=== PATIENT | female | born 1970 | race Caucasian/White ===

== ENCOUNTER 2016-05-01 08:09 | Emergency (ER) | payer BC, MEDICAID ==
[2016-05-01 08:22] VITALS: BP 122/76
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
== END 2016-05-01 09:41 | disposition home or self-care (01) ==
LOC: UCEAST 08:09
DX: B34.9 Viral infection, unspecified (principal); Z88.8 Allergy status to other drugs, medicaments and biological substances; F17.210 Nicotine dependence, cigarettes, uncomplicated
CPT/HCPCS: 87502; 87651; 99212; G0463

== ENCOUNTER 2016-10-30 16:48 | Emergency (ER) | payer BC, MEDICAID ==
[2016-10-30] MEDS ORDERED: Ketorolac INJ* 60 MG/2 ML VIAL IM ONE (17:49)
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
[2016-10-30 19:08] VITALS: BP 134/80
== END 2016-10-30 19:07 | disposition home or self-care (01) ==
LOC: ED 16:48
DX: M54.2 Cervicalgia (principal); F17.210 Nicotine dependence, cigarettes, uncomplicated; Z04.1 Encounter for examination and observation following transport accident
CPT/HCPCS: 72125; 96372; 99282; J1885

== ENCOUNTER 2016-11-18 10:25 | Emergency (ER) | payer BC, OTHER ==
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
[2016-11-18 13:06] VITALS: BP 128/73
== END 2016-11-18 13:10 | disposition home or self-care (01) ==
LOC: UCEAST 10:25
DX: M62.838 Other muscle spasm (principal); Z88.8 Allergy status to other drugs, medicaments and biological substances; F17.210 Nicotine dependence, cigarettes, uncomplicated
CPT/HCPCS: 99212; G0463

== ENCOUNTER 2016-12-23 16:06 | Emergency (ER) | payer MEDICAID, OTHER ==
[2016-12-23 16:22] VITALS: BP 122/74
--- NOTE | 2016-12-23 16:29 | UC ---
UC Dental HPI - HPI Summary HPI Summary: 46 YEAR OLD FEMALE PRESENTS WITH COMPLAINS OF RIGHT LOWER MOLAR ABSCESS. - History of Current Complaint Chief Complaint: UCDentalProblem Stated Complaint: DENTAL PAIN Time Seen by Provider: 12/23/16 16:26 Hx Obtained From: Patient Hx Last Menstrual Period: 12/18/16 Onset/Duration: Sudden Onset Severity: Moderate Pain Scale Used: 0-10 Numeric - 7 - Allergies/Home Medications Allergies/Adverse Reactions: Allergies Allergy/AdvReac Type Severity Reaction Status Date / Time Venlafaxine [From Effexor] Allergy Severe Difficulty Verified 12/23/16 16:23 Breathing Paroxetine [From Paxil] Allergy Intermediate Numbness Verified 12/23/16 16:23 And Tingling Home Medications: Home Medications Ibuprofen TAB* [Advil TAB*] 800 mg PO Q3HR PRN 12/23/16 [History Confirmed 12/23] PMH/Surg Hx/FS Hx/Imm Hx Previously Healthy: Yes - Surgical History Surgical History: Yes Surgery Procedure, Year, and Place: appy, TUBAL LIGATION, COLON PRE-CANCEROUS POLYP REMOVED - Family History Known Family History: Positive: Unknown, Hypertension - Social History Alcohol Use: None Substance Use Type: None Smoking Status (MU): Heavy Every Day Tobacco Smoker Type: Cigarettes Amount Used/How Often: 1/2 ppd Household Exposure Type: Cigarettes Review of Systems Constitutional: Negative Skin: Negative Eyes: Negative ENT: Dental Pain Respiratory: Negative Cardiovascular: Negative Gastrointestinal: Negative Genitourinary: Negative Motor: Negative Neurovascular: Negative Musculoskeletal: Negative Neurological: Negative Psychological: Negative All Other Systems Reviewed And Are Negative: Yes Physical Exam Triage Information Reviewed: Yes Vital Signs: Initial Vital Signs Temp 36.8 C 12/23/16 16:17 Pulse 64 12/23/16 16:17 Resp 18 12/23/16 16:17 BP 122/74 12/23/16 16:17 Pulse Ox 100 12/23/16 16:17 Eye Exam: Normal ENT Exam: Normal Dental: Positive: Abscess @ Neck exam: Normal Neck: Positive: 1 Respiratory Exam: Normal Cardiovascular Exam: Normal Abdominal Exam: Normal Musculoskeletal Exam: Normal Neurological Exam: Normal Psychological Exam: Normal Skin: Positive: rashes Dental Complaint Course/Dx - Differential Dx/Diagnosis Differential Diagnosis/Dx: Dental Abscess Provider Diagnoses: DENTAL ABSCESS Discharge - Discharge Plan Condition: Stable Disposition: HOME Prescriptions: Amoxicillin/Clavulanate TAB* [Augmentin TAB 875*] 875 mg PO BID #20 tab Chlorhexidine MW 0.12% 473ML* [Peridex Mouth Wash 0.12%*] 15 ml MT TID PC #1 btl Magic M W2 Juan Jose/Maal/Nyst/Lido* 5 ml SWISH SPIT QID PRN #120 ml PRN Reason: Pain Meloxicam [Mobic] 7.5 mg PO BID PC #30 tab Patient Education Materials: Dental Abscess (ED) Referrals: Les COLE,Chong White [Primary Care Provider] -
== END 2016-12-23 16:40 | disposition home or self-care (01) ==
LOC: UCEAST 16:06
DX: K04.7 Periapical abscess without sinus (principal); F17.210 Nicotine dependence, cigarettes, uncomplicated
CPT/HCPCS: 99212; G0463

== ENCOUNTER 2017-11-21 20:51 | Emergency (ER) | payer OTHER, MEDICAID ==
[2017-11-21 21:03] VITALS: BP 135/75
--- NOTE | 2017-11-21 21:10 | UC ---
Lower Extremity/Ankle HPI - HPI Summary HPI Summary: 46 y/o female presents to the urgent care c/o left ankle and foot pain s/p rolling her ankle while going down the stairs around 1500 today. Pt is was unable to bear weight after it happened. Pt states swelling in the lateral side of ankle and top of his mid foot. Pain is 9/10 w/ movement and 6/10 at rest, sharp and radiating to the left #2 and 3rd toe. Pt applied ice and took and Ibuprofen PO at 1530pm. Pt denies numbness or tingling sensation over the left ankle or foot, calf pain, SOB, chest pain, abdominal pain, N/V/D. - History of Current Complaint Chief Complaint: UCLowerExtremity Stated Complaint: ANKLE INJURY Time Seen by Provider: 11/21/17 21:07 Hx Obtained From: Patient Hx Last Menstrual Period: [id number] ?: No - b/L tubal ligation Onset/Duration: Sudden Onset, Lasting Hours Severity Initially: Moderate Severity Currently: Moderate Pain Intensity: 6 Pain Scale Used: 0-10 Numeric Aggravating Factor(s): Standing, Ambulation Alleviating Factor(s): Rest, Ice Able to Bear Weight: No - Risk Factors Gout Risk Factors: Negative DVT Risk Factors: Negative Septic Arthritis Risk Factor: Negative - Allergies/Home Medications Allergies/Adverse Reactions: Allergies Allergy/AdvReac Type Severity Reaction Status Date / Time paroxetine [From Paxil] Allergy Numbness Verified 11/21/17 21:05 And Tingling venlafaxine [From Effexor] Allergy Difficulty Verified 11/21/17 21:05 Breathing PMH/Surg Hx/FS Hx/Imm Hx Previously Healthy: Yes Endocrine History: Hypothyroidism Psychological History: Depression Cancer History: Colorectal Cancer - Surgical History Surgical History: Yes Surgery Procedure, Year, and Place: appy, TUBAL LIGATION, COLON PRE-CANCEROUS POLYP REMOVED - Family History Known Family History: Positive: Cardiac Disease, Hypertension, Diabetes - Social History Occupation: Employed Full-time Lives: With Family Alcohol Use: None Substance Use Type: None Smoking Status (MU): Light Every Day Tobacco Smoker Type: Cigarettes Amount Used/How Often: 1/2 ppd Household Exposure Type: Cigarettes Review of Systems Constitutional: Negative Skin: Other - left foot and ankle swelling s/p fall Eyes: Negative ENT: Negative Respiratory: Negative Cardiovascular: Negative Gastrointestinal: Negative Genitourinary: Negative Motor: Negative Neurovascular: Negative Musculoskeletal: Decreased ROM - left ankle and left foot, Other: - left ankle and foot pain s/p injury Neurological: Negative Psychological: Negative Is Patient Immunocompromised?: No All Other Systems Reviewed And Are Negative: Yes Physical Exam - Summary Physical Exam Summary: Vital Signs Reviewed: Yes General: well developed, well nourished female, sitting in the examining table w /o any apparent distress Eyes: Positive: Conjunctiva Clear - PERRLA, EOMI, ENT: Positive: Normal ENT inspection, Hearing grossly normal, Pharynx normal, TMs normal Neck: Positive: Supple, Nontender, No Lymphadenopathy Respiratory: Positive: Chest non-tender, Lungs clear, Normal breath sounds, No respiratory distress Cardiovascular: Positive: RRR, No Murmur, Pulses Normal, Brisk Capillary Refill Abdomen Description: Positive: Nontender, No Organomegaly, Soft. Negative: CVA Tenderness (R), CVA Tenderness (L) Bowel Sounds: Positive: Present Musculoskeletal: LF Ankle: Pt is unable to bear weight and ambulate w/ limping. The L ankle is without obvious asymmetry or deformity when compared to the R ankle. Decreased ROM due to pain. Moderate swelling at the lateral malleolus, with tenderness to palpation. No ecchymosis or bruising observed. Tenderness to palpation over the navicular bone w/ soft tissue swelling observed. Talar tilt test is negative for ligament laxity to valgus or varus stress. Negative anterior drawer. Peroneal nerve is intact with strong eversion and plantar flexion. Positive sensation over the L foot and L ankle, positive pulses, capillary refill intact Neurological Exam: Normal Psychological Exam: Normal Skin: warm and dry Triage Information Reviewed: Yes Vital Signs: Initial Vital Signs Temp 98.6 F 11/21/17 20:56 Pulse 67 11/21/17 20:56 Resp 16 11/21/17 20:56 BP 135/75 11/21/17 20:56 Pulse Ox 100 11/21/17 20:56 Lower Extremity Course/Dx - Course Course Of Treatment: 46 y/o female presents to the urgent care c/o left ankle and foot pain s/p rolling her ankle while going down the stairs around 1500 today. Pt is was unable to bear weight after it happened. Pt states swelling in the lateral side of ankle and top of his mid foot. Pain is 9/10 w/ movement and 6/10 at rest, sharp and radiating to the left #2 and 3rd toe. Pt applied ice and took and Ibuprofen PO at 1530pm. Pt denies numbness or tingling sensation over the left ankle or foot, calf pain, SOB, chest pain, abdominal pain, N/V/ D.Hx obtained. LF ankle X-ray ordered, Impression: Soft tissue swelling , no acute fracture observed. Pt most likely with a LF ankle and left foot Sprain. Pt/s foot immobilized with CAM hi, given crutches to avoid weight bearing, Rx Ibuprofen PO to decrease swelling and pain. First dose given at the clinic tonight. Pt advised RICE, take Ibuprofen PO for pain and to f/u with PCP or orthopedic DR Murphy in 1 week if not improvement of symptoms for further treatment. Pt understood and agreed and left the clinic ambulating w/ the help of crutches. - Differential Dx/Diagnosis Differential Diagnosis/HQI/PQRI: Contusion, Dislocation, Fracture (Closed), Sprain, Strain, Tendonitis Provider Diagnoses: 1- Left ankle and foot pain s/p injury. 2- Left ankle and foot sprain Discharge - Sign-Out/Discharge Documenting (check all that apply): Patient Departure - Discharge Plan Condition: Stable Disposition: HOME Prescriptions: Ibuprofen TAB* [Motrin TAB* 800 MG] 800 mg PO Q6H PRN #30 tab PRN Reason: Pain Patient Education Materials: Foot Sprain (ED) Forms: *Work Release Referrals: Yessenia Murphy MD [Medical Doctor] - 1 Week Les COLE,Chong White [Primary Care Provider] - 1 Week Additional Instructions: 1-Please take medications as directed to alleviate pain and swelling. 2-Please apply ice, keep your ankle immobilized with the CAM boot. Avoid weight bearing using the crutches. Elevate your ankle and foot 3- Please f/u with Orthopedic Jeffrey in 1 week is not improvement of symptoms for further evaluation and treatment. - Billing Disposition and Condition Condition: STABLE Disposition: Home
[2017-11-21] MEDS ORDERED: Ibuprofen TAB* 400 MG PO ONE (22:02)
--- NOTE | 2017-11-22 07:20 | RAD ---
HISTORY: left ankle pain s/p injury COMPARISONS: None VIEWS: 6, Frontal, lateral, and oblique views of the left foot and ankle FINDINGS: BONE DENSITY: Normal. BONES: There is no displaced fracture. JOINTS: There is osteoarthritis of the first MTP joint. ALIGNMENT: There is mild hallux valgus. SOFT TISSUES: Unremarkable. OTHER FINDINGS: None. IMPRESSION: NO ACUTE OSSEOUS INJURY TO THE LEFT FOOT AND ANKLE. IF SYMPTOMS PERSIST, RECOMMEND REPEAT IMAGING. R0
== END 2017-11-21 22:30 | disposition home or self-care (01) ==
LOC: UCEAST 20:51
DX: S93.402A Sprain of unspecified ligament of left ankle, initial encounter (principal); S93.602A Unspecified sprain of left foot, initial encounter; W10.9XXA Fall (on) (from) unspecified stairs and steps, initial encounter; Y92.9 Unspecified place or not applicable; F17.210 Nicotine dependence, cigarettes, uncomplicated; Z79.899 Other long term (current) drug therapy
CPT/HCPCS: 99212; A9270-GY; G0463

== ENCOUNTER 2018-08-17 12:24 | Emergency (ER) | payer BC ==
--- NOTE | 2018-08-17 13:34 | UC ---
Back Pain HPI - HPI Summary HPI Summary: 47-year-old woman 47-year-old woman comes in with a chief complaint of low back pain. Patient reports she always has low back pain perhaps even for years. Yesterday at work while doing a lot of lifting pain got worse. Pain did improve with laying flat. Worse with movement. She took some ibuprofen which didn't help much. After sleep the pain had decreased. No complaint of any weakness or numbness. Patient did notice that since she's had increased back pain she's been urinating more frequently but she still able to control. No complaint of loss of bowel control. No fevers or chills. She does have pain going down both buttocks into both legs. She's had this off in the past but it' s been constant ever since yesterday. Also increased lower neck pain since yesterday. - History of Current Complaint Chief Complaint: UCBackPain Stated Complaint: BACK INJURY Time Seen by Provider: 08/17/18 13:20 Hx Last Menstrual Period: due now Pain Intensity: 10 - Allergies/Home Medications Allergies/Adverse Reactions: Allergies Allergy/AdvReac Type Severity Reaction Status Date / Time paroxetine [From Paxil] Allergy Numbness Verified 08/17/18 12:53 And Tingling venlafaxine [From Effexor] Allergy Difficulty Verified 08/17/18 12:53 Breathing PMH/Surg Hx/FS Hx/Imm Hx Previously Healthy: Yes - fibromyalgia, reports lumbar bulging discs Endocrine History: Hypothyroidism - Surgical History Surgical History: Yes Surgery Procedure, Year, and Place: appy, TUBAL LIGATION, COLON PRE-CANCEROUS POLYP REMOVED - Family History Known Family History: Positive: Unknown, Cardiac Disease, Hypertension, Diabetes - Social History Alcohol Use: None Substance Use Type: None Smoking Status (MU): Light Every Day Tobacco Smoker Type: Cigarettes Amount Used/How Often: 1/2 ppd Household Exposure Type: Cigarettes Review of Systems All Other Systems Reviewed And Are Negative: Yes Constitutional: Positive: Negative Skin: Positive: Negative Eyes: Positive: Negative ENT: Positive: Negative Respiratory: Positive: Negative Cardiovascular: Positive: Negative Gastrointestinal: Positive: Negative Genitourinary: Positive: Frequency Motor: Positive: Negative Neurovascular: Positive: Negative Musculoskeletal: Positive: Other: - see hpi Neurological: Positive: Negative Psychological: Positive: Negative Is Patient Immunocompromised?: No Physical Exam Triage Information Reviewed: Yes Appearance: Well-Appearing, Well-Nourished, Pain Distress - mild with rom Vital Signs: Initial Vital Signs Temp 99.3 F 08/17/18 12:48 Pulse 85 08/17/18 12:48 Resp 20 08/17/18 12:48 BP 111/76 08/17/18 12:48 Pulse Ox 100 08/17/18 12:48 Vital Signs Reviewed: Yes Eye Exam: Normal Eyes: Positive: Conjunctiva Clear Neck: Positive: Supple, Other: - Mild tenderness lower neck Respiratory: Positive: No respiratory distress Musculoskeletal: Positive: Other: - Tender to palpation midline of the lower back. Both legs have full range of motion normal sensation. No weakness. Neurological Exam: Normal Neurological: Positive: Alert, Muscle Tone Normal Psychological Exam: Normal Psychological: Positive: Age Appropriate Behavior Skin Exam: Normal Back Pain Course/Dx - Course Course Of Treatment: Patient has a follow-up appointment with her primary care physician tomorrow. Patient has no focal neurologic deficit on exam today. She tells me that the hydrocodone works the best for pain control. She has Flexeril at home which she says when she takes that she falls asleep for 2 days. She does have increased urinary frequency today but no difficulty controlling urine. I did let her know that if she had any weakness numbness difficulty controlling urine or bowel she needs to get rechecked right away. With close follow-up tomorrow with her primary care doctor that's reassuring. - Differential Dx/Diagnosis Provider Diagnosis: Low back pain, Neck pain, Lumbar radiculopathy Discharge - Sign-Out/Discharge Documenting (check all that apply): Patient Departure All imaging exams completed and their final reports reviewed: No Studies - Discharge Plan Condition: Stable Disposition: HOME Prescriptions: HYDROcodone/ACETAMIN 5-325 MG* [[place] 5-325 TAB*] 1 tab PO Q4H PRN #20 tab MDD 6 PRN Reason: Pain Patient Education Materials: Low Back Strain (ED), Lumbar Radiculopathy (ED), Lower Back Exercises (ED), Neck Pain (ED) Forms: *Work Release Referrals: Les COLE,Chong White [Primary Care Provider] - Additional Instructions: FOLLOW UP WITH YOUR DOCTOR TOMORROW, 08/18/18, SCHEDULED. GET RECHECKED SOONER IF YOUR CONDITION WORSENS; WEAKNESS, NUMBNESS, DIFFICULTY CONTROLLING BOWEL OR BLADDER, PAIN OR ANY QUESTIONS OR CONCERNS. - Billing Disposition and Condition Condition: STABLE Disposition: Home
[2018-08-17 14:34] VITALS: BP 130/82
== END 2018-08-17 14:30 | disposition home or self-care (01) ==
LOC: UCEAST 12:24
DX: M54.5 Low back pain (principal); M54.2 Cervicalgia; M54.16 Radiculopathy, lumbar region; F17.210 Nicotine dependence, cigarettes, uncomplicated; Z88.8 Allergy status to other drugs, medicaments and biological substances
CPT/HCPCS: 81003; 99211; G0463

== ENCOUNTER 2022-11-05 06:43 | Observation (INO) ==
[~2022-11-05 06:43] MED LIST: Buffered Lidocaine 1% SYRIN 1 ml INTRADERM ONE; Lactated Ringers 1000 ml BAG 1,000 ML IV SCH; Naloxone 0.4 mg VIAL 0.4 mg/ml 1 ml VIAL IV PRN; Prochlorperazine 5 mg/ml 2 ml VIAL (10 mg) IV PRN; fentaNYL 100 mcg/2 ml 50 MCG/ML VIAL IV PRN
[2022-11-05] MEDS ORDERED: Ondansetron ODT 4 mg TAB 4 MG TAB SL PRN (07:40)
[2022-11-05] MEDS ORDERED: Lidocaine 2.5%/Prilocain 2.5% 5 GM TUBE ONE (07:50)
[2022-11-05] MEDS ORDERED: Scopolamine 1 mg/72hr PATCH TRANSDERM SCH (08:00)
[2022-11-05] MEDS ORDERED: Buffered Lidocaine 1% SYRIN 1 ml ONE (08:03)
[2022-11-05] MEDS ORDERED: Heparin 5000 UNITS/ML 1 mL VIAL ONE (09:01)
[2022-11-05] MEDS ORDERED: ceFAZolin 2 GM in NS PREMIX 2 GM/100 ML BAG IVPB ONE (09:01)
[2022-11-05] MEDS ORDERED: Oxycodone IR 10 mg TAB (NF) PO ONE (12:02)
[2022-11-05] MEDS ORDERED: Lidocaine 2% PF 5 ML VIAL ONE (13:27)
[2022-11-05] MEDS ORDERED: fentaNYL 100 mcg/2 ml 50 MCG/ML VIAL ONE ×3 (13:27→19:56)
[2022-11-05] MEDS ORDERED: Rocuronium 50 mg VIAL 10 mg/ml 5 ml VIAL (50 mg) ONE ×2 (13:27→15:10)
[2022-11-05] MEDS ORDERED: Propofol 10 MG/ML 20 ML BTL ONE ×3 (13:27→16:29)
[2022-11-05] MEDS ORDERED: Midazolam 2 mg/2 ml VIAL 1 mg/ml 2 ml VIAL (2 mg) ONE (13:28)
[2022-11-05] MEDS ORDERED: Bupivacaine 0.5% SDV PF 30ML VIAL ONE (13:41)
[2022-11-05] MEDS ORDERED: ISOSULFAN BLUE 1% 5 ML VIAL 10 MG/ML SUBCUT ONE (13:41)
[2022-11-05] MEDS ORDERED: HYDROmorphone 0.5 MG/0.5 ML SYRINGE ONE (14:58)
[2022-11-05] MEDS ORDERED: Dexamethasone IV 4 MG/ML VIAL 1 ml VIAL ONE (15:13)
[2022-11-05] MEDS ORDERED: Ondansetron 4 mg VIAL 2 MG/ML 2 ml VIAL ONE ×2 (15:13→18:29)
[2022-11-05] MEDS ORDERED: Acetaminophen IV 1 GM/100ML 1,000 MG/100 ML BAG IV ONE (18:04)
[2022-11-05] MEDS ORDERED: ceFAZolin VIAL VIAL ONE (18:32)
[2022-11-05 19:54] LABS: Rapid COVID-19 Molecular Undetected (Undetected)
[2022-11-05] MEDS ORDERED: Ondansetron ODT 4 mg TAB 4 MG TAB PO PRN (21:14)
[2022-11-05] MEDS ORDERED: Benzocaine (plain) Lozenge 15 MG PO PRN (21:17)
[2022-11-05] MEDS ORDERED: Albuterol HFA INHALER 8 gm MDI INH PRN (22:16)
[2022-11-05] MEDS: Morphine 2 MG/ML SYRINGE IV PRN (22:20)
[2022-11-05] MEDS: Heparin 5000 UNITS/ML 1 mL VIAL SUBCUT SCH (22:24)
[2022-11-06] MEDS: ceFAZolin 2 GM PREMIX 2 GM/50 ML BAG IVPB SCH ×2 (00:15→08:10)
[2022-11-06] MEDS: Heparin 5000 UNITS/ML 1 mL VIAL SUBCUT SCH (05:37)
[2022-11-06] MEDS: Morphine 2 MG/ML SYRINGE IV PRN (05:41)
[2022-11-06] MEDS ORDERED: oxyCODONE/Acetamin 5/325 mg TAB PO PRN (05:52)
[2022-11-06 06:17] VITALS: BP 135/81
[2022-11-06] MEDS ORDERED: Nicotine PATCH 21 MG/24 HR PATCH TRANSDERM SCH (09:00)
== END 2022-11-06 10:35 | disposition home or self-care (01) ==
LOC: OR 06:43 → SSU 06:43
PROVIDERS: ADMIT Student in an Organized Health Care Education/Training Program; ATTEND Student in an Organized Health Care Education/Training Program

== ENCOUNTER 2022-11-30 05:56 | Inpatient (IN) ==
[~2022-11-30 05:56] MED LIST changes: -Buffered Lidocaine 1% SYRIN 1 ml INTRADERM ONE; +Bupivacaine 0.25% SDV PF 10 ML VIAL INJ ONE; -Lactated Ringers 1000 ml BAG 1,000 ML IV SCH; -Naloxone 0.4 mg VIAL 0.4 mg/ml 1 ml VIAL IV PRN; -Prochlorperazine 5 mg/ml 2 ml VIAL (10 mg) IV PRN; -fentaNYL 100 mcg/2 ml 50 MCG/ML VIAL IV PRN
[2022-11-30] MEDS ORDERED: Buffered Lidocaine 1% SYRIN 1 ml INTRADERM ONE (06:00)
[2022-11-30] MEDS ORDERED: Lactated Ringers 1000 ml BAG 1,000 ML IV SCH (06:00)
[2022-11-30] MEDS ORDERED: ceFAZolin 2 GM PREMIX 2 GM/50 ML BAG ONE (06:43)
[2022-11-30] MEDS ORDERED: Lidocaine 2% PF 5 ML VIAL ONE (06:54)
[2022-11-30] MEDS ORDERED: Propofol 10 MG/ML 20 ML BTL ONE (06:54)
[2022-11-30] MEDS ORDERED: Rocuronium 50 mg VIAL 10 mg/ml 5 ml VIAL (50 mg) ONE (06:57)
[2022-11-30] MEDS ORDERED: fentaNYL 250 mcg/5 ml 50 MCG/ML 5 ml VIAL (250 MCG) ONE (06:57)
[2022-11-30] MEDS ORDERED: Midazolam 2 mg/2 ml VIAL 1 mg/ml 2 ml VIAL (2 mg) ONE (07:00)
[2022-11-30] MEDS ORDERED: Heparin 5000 UNITS/ML 1 mL VIAL ONE (07:03)
[2022-11-30] MEDS ORDERED: Glycopyrrolate IV 0.2 MG/ML 1 ML VIAL ONE (07:43)
[2022-11-30 08:03] LABS: Rapid COVID-19 Molecular Undetected (Undetected)
[2022-11-30] MEDS ORDERED: Ondansetron 4 mg VIAL 2 MG/ML 2 ml VIAL ONE (08:04)
[2022-11-30] MEDS ORDERED: Dexamethasone IV 4 MG/ML VIAL 1 ml VIAL ONE (08:04)
[2022-11-30] MEDS ORDERED: HYDROmorphone 0.5 MG/0.5 ML SYRINGE ONE (08:05)
[2022-11-30] MEDS ORDERED: ceFAZolin VIAL VIAL ONE (09:53)
[2022-11-30] MEDS ORDERED: Morphine 2 MG/ML SYRINGE IV PRN (10:37)
[2022-11-30] MEDS ORDERED: oxyCODONE/Acetamin 10/325(NF) TAB PO PRN (10:37)
[2022-11-30] MEDS ORDERED: Naloxone 0.4 mg VIAL 0.4 mg/ml 1 ml VIAL IV PRN (11:42)
[2022-11-30] MEDS ORDERED: Ondansetron 4 mg VIAL 2 MG/ML 2 ml VIAL IV PRN (11:42)
[2022-11-30] MEDS ORDERED: fentaNYL 100 mcg/2 ml 50 MCG/ML VIAL IV PRN (11:42)
[2022-11-30] MEDS ORDERED: HYDROmorphone 1 MG/1 ML SYRINGE ONE (11:45)
[2022-11-30] MEDS: HYDROmorphone 1 MG/1 ML SYRINGE IV PRN ×2 (11:46→12:16)
[2022-11-30] MEDS ORDERED: Scopolamine 1 mg/72hr PATCH ONE (12:42)
[2022-11-30] MEDS ORDERED: Ondansetron ODT 4 mg TAB 4 MG TAB PO PRN (13:29)
[2022-11-30] MEDS ORDERED: Benzocaine (plain) Lozenge 15 MG PO PRN (13:30)
[2022-11-30] MEDS ORDERED: Albuterol HFA INHALER 8 gm MDI INH PRN (13:32)
[2022-11-30] MEDS: Heparin 5000 UNITS/ML 1 mL VIAL SUBCUT SCH ×2 (15:03→22:17)
[2022-11-30] MEDS ORDERED: ceFAZolin 2 GM in NS PREMIX 2 GM/100 ML BAG IVPB SCH (16:00)
[2022-11-30] MEDS: ceFAZolin 2 GM in NS PREMIX 2 GM/100 ML BAG IVPB SCH (18:11)
[2022-11-30] MEDS: oxyCODONE/Acetamin 5/325 mg TAB PO PRN (22:18)
[2022-12-01] MEDS: ceFAZolin 2 GM in NS PREMIX 2 GM/100 ML BAG IVPB SCH ×3 (01:34→15:44)
[2022-12-01] MEDS: oxyCODONE/Acetamin 5/325 mg TAB PO PRN ×2 (05:42→11:39)
[2022-12-01] MEDS: Heparin 5000 UNITS/ML 1 mL VIAL SUBCUT SCH ×2 (05:43→13:54)
[2022-12-01] MEDS ORDERED: Nicotine PATCH 21 MG/24 HR PATCH TRANSDERM SCH (09:00)
[2022-12-01 14:37] VITALS: BP 104/66
== END 2022-12-01 17:00 | disposition home or self-care (01) | DRG 681 ==
LOC: SSU 05:56 → OR 05:56
PROVIDERS: ADMIT Student in an Organized Health Care Education/Training Program; ATTEND Student in an Organized Health Care Education/Training Program